=== PATIENT | female | born 1975 | race Caucasian/White ===

== ENCOUNTER 2022-08-14 08:17 | Emergency (ER) | payer MEDICAID ==
[~2022-08-14] VITALS: Ht 162.6 cm; Wt 79.0 kg
[2022-08-14 08:19] VITALS: BP 123/80
[2022-08-14 09:21] LABS: URINE HCG NEGATIVE (NEG)
[2022-08-14 09:23] LABS: CLARITY,URINE CLOUDY (Clear); COLOR,URINE YELLOW (Yellow); GLUCOSE, URINE >=1000 mg/dl (Neg); KETONES,URINE TRACE mg/dl (Neg); LEUKOCYTE ESTERASE ,URINE SMALL (Neg); NITRITES, URINE NEGATIVE (Neg); OCCULT BLOOD,URINE MODERATE (Neg); PH,URINE 5.5 (4.8-8.0); PROTEIN,URINE 30 mg/dl (Neg); UROBILINOGEN,URINE 0.2 E.U/dL (0.2-1.0)
[2022-08-14 09:27] LABS: UA COLLECTION TYPE CLN CATCH MIDSTREAM
[2022-08-14 09:29] LABS: BACTERIA,URINE 1+ /HPF (Neg); MUCUS STRANDS NONE SEEN /LPF (Neg); SQUAMOUS EPITHELIAL CELL,UR MODERATE /LPF (FEW); WBC CLUMPS,URINE MANY /HPF (NEGATIVE); WBC,URINE TNTC /HPF (0-4)
[2022-08-14] MEDS ORDERED: NITR100C6 PO (09:58)
[2022-08-14] MEDS ORDERED: nitrofuran monohydrate/nitrofuran macrocrysal 100 MG (MacroBID) capsule PO ONE (10:00)
== END 2022-08-14 10:10 | disposition home or self-care (01) ==
LOC: ER 08:17
DX: N39.0 Urinary tract infection, site not specified (principal); Z79.899 Other long term (current) drug therapy
CPT/HCPCS: 81001; 81025; 87077; 87088; 87186; 99283

== ENCOUNTER 2022-08-22 08:24 | Day surgery (SDC) | payer MEDICAID ==
[2022-08-18 11:06] LABS: CLARITY,URINE CLEAR (Clear); COLOR,URINE YELLOW (Yellow); GLUCOSE, URINE >=1000 mg/dl (Neg); KETONES,URINE NEGATIVE (Neg); LEUKOCYTE ESTERASE ,URINE NEGATIVE (Neg); NITRITES, URINE NEGATIVE (Neg); OCCULT BLOOD,URINE NEGATIVE (Neg); PH,URINE 5.5 (4.8-8.0); PROTEIN,URINE NEGATIVE (Neg); UROBILINOGEN,URINE 0.2 E.U/dL (0.2-1.0)
[2022-08-18 11:08] LABS: BASOPHILS % (AUTO) 0.5 % (0-1); EOSINOPHILS # (AUTO) 0.4 X10'3 (0-0.9); EOSINOPHILS % (AUTO) 4.2 % (0-6); LYMPHOCYTES # (AUTO) 2.1 X10'3 (1.1-4.8); LYMPHOCYTES % (AUTO) 23.6 % (21-51); MEAN CORPUSCULAR HGB CONC 33.8 g/dL (33.0-36.5); MEAN CORPUSCULAR VOLUME 91.8 FL (78-98); MEAN PLATELET VOLUME 8.5 FL (7.4-10.4); MONOCYTES # (AUTO) 0.4 X10'3 (0-0.9); MONOCYTES % (AUTO) 4.7 % (2-12); PRE OP HEMATOCRIT 43.8 % (35.0-45.0); PRE OP HEMOGLOBIN 14.8 g/dL (12.0-16.0); PRE OP PLATELET COUNT 217 X10'3 (140-440); RED BLOOD COUNT 4.77 X10'6 (4.20-5.60); RED CELL DISTRIBUTION WIDTH 14.3 % (11.5-14.5)
[2022-08-18 11:11] LABS: UA COLLECTION TYPE CLN CATCH MIDSTREAM
[2022-08-18 11:13] LABS: BACTERIA,URINE FEW /HPF (Neg); MUCUS STRANDS NONE SEEN /LPF (Neg); RBC,URINE NONE SEEN /HPF (0-2); SQUAMOUS EPITHELIAL CELL,UR MANY /LPF (FEW); WBC,URINE 0-4 /HPF (0-4)
[2022-08-18 11:20] LABS: ALBUMIN 3.9 G/DL (3.4-5.0); ALBUMIN/GLOBULIN RATIO 1.1 (1.1-1.5); ALKALINE PHOSPHATASE 72 IU/L (46-116); BLOOD UREA NITROGEN 7 MG/DL (7-18); BUN/CREATININE RATIO 8.8 (6.6-38.0); CALCIUM 8.8 MG/DL (8.5-10.1); CHLORIDE 104 MMOL/L (99-107); PRE OP ALT 38 U/L (30-65); PRE OP ANION GAP 8 (8-16); PRE OP AST 25 U/L (10-37); PRE OP BILIRUB, TOTAL 0.7 MG/DL (0.0-1.0); PRE OP GLUCOSE 123 MG/DL (70-104); PRE OP SODIUM 141 MMOL/L (135-145); TOTAL PROTEIN 7.6 G/DL (6.4-8.2); eGFR 77 ML/MIN
[2022-08-18 11:35] LABS: PRE OP POTASSIUM 3.3 MMOL/L (3.4-5.1)
[2022-08-18 11:46] LABS: HCG SERUM QL NEGATIVE
[~2022-08-22] VITALS: Ht 162.6 cm; Wt 75.7 kg
[~2022-08-22 08:24] MED LIST: BUPR300T86 PO; CLON-368 PO; EMPA10TA PO; ceFOXitin 2GM-NS 100mL ADDvant 100 ML IV ONE; famotidine 20mg tablet PO ONE; ringers solution, lacted 1,000 ML IV SCH
[2022-08-22 08:30] VITALS: BP 133/68
[2022-08-22] MEDS ORDERED: ringers solution, lacted 1,000 ML IV SCH (09:20)
[2022-08-22] MEDS ORDERED: proCHLORperazine 10 MG/2 ml inj IV PRN (09:20)
[2022-08-22] MEDS ORDERED: acetaminophen 1,000mg/100ml IV 100 ML IV PRN (09:20)
[2022-08-22] MEDS ORDERED: ondansetron/PF 4mg/2ml inj IV PRN (09:20)
[2022-08-22] MEDS ORDERED: hydrALAZINE 20mg/ml inj. IV PRN (09:20)
[2022-08-22] MEDS ORDERED: morphine 2 MG/ML inj. syringe IV PRN (09:20)
[2022-08-22] MEDS ORDERED: labetalol 20mg/4ml (5mg/ml) syringe IV PRN (09:20)
[2022-08-22] MEDS ORDERED: meperidine/PF 25mg/ml syringe IV PRN ×3 (09:20)
[2022-08-22] MEDS ORDERED: sevoflurane 250ml liquid IH ONE (09:30)
[2022-08-22] MEDS ORDERED: midazolam 1 mg/ML 2ml injection ONE (09:41)
[2022-08-22] MEDS ORDERED: LIDOcaine 2% (20mg/ml) 5ml vial ONE (09:58)
[2022-08-22] MEDS ORDERED: fentaNYL/PF 50MCG/1 ML 2ML syringe ONE (09:58)
[2022-08-22] MEDS ORDERED: ondansetron/PF 4mg/2ml inj ONE (09:58)
[2022-08-22] MEDS ORDERED: propofol inj 20 ML IV ONE (09:58)
[2022-08-22] MEDS ORDERED: dexamethasone sod phosphate 4mg/ml inj. ONE (09:58)
[2022-08-22 10:18] VITALS: BP 134/73
--- NOTE | 2022-08-22 10:18 | NUR ---
Received from OR via , accompanied by Anesthesiologist ALEX AND OR NURSE and report given by Anesthesiolgist. PT IS SLEEPY BUT C/O PAIN AND DISCOMFORT; PAIN MEDS GIVEN ONCE PT SETTLED. 20G TO LT HAND; PACU LR INFUSING. DR SHEN REPORTS PT ABLE TO D/C SOON AWAKE AND PAIN WELL CONTROLLED. VSS Addendum: 08/22/22 at 1038 by Rekha Rebolledo RN Amended: Links added.
[2022-08-22] MEDS: morphine 4 MG/ML inj SYRINge IV PRN ×2 (10:24→10:42)
[2022-08-22 10:30] VITALS: BP 134/75
[2022-08-22 10:40] VITALS: BP 118/71
[2022-08-22 10:50] VITALS: BP 113/66
[2022-08-22 11:00] VITALS: BP 115/75
--- NOTE | 2022-08-22 11:18 | NUR ---
ALL DISCHARGE CRITERIA HAS BEEN MET. VSS, PAIN AT A TOLERABLE LEVEL, VOIDING AND ABLE TO SAFELY AMBULATE AND TRANSFER SELF. IV TAKEN OUT WITHOUT ANY COMPLICATIONS. ALL DISCHARGE INSTRUCTIONS COVERED WITH PATIENT AND ALL QUESTIONS ANSWERED. PATIENT TAKEN OUT VIA WHEELCHAIR TO PERSONAL VEHICLE WHERE FAMILY/FRIEND DROVE PATIENT HOME. Addendum: 08/22/22 at 1133 by Rekha Rebolledo RN Amended: Links added.
== END 2022-08-22 11:18 | disposition home or self-care (01) ==
LOC: PAS 08:24
PROVIDERS: ATTEND Obstetrics & Gynecology Obstetrics
DX: N94.6 Dysmenorrhea, unspecified (principal); N92.0 Excessive and frequent menstruation with regular cycle; N84.0 Polyp of corpus uteri; D25.0 Submucous leiomyoma of uterus; F41.9 Anxiety disorder, unspecified; F32.9 Major depressive disorder, single episode, unspecified; E11.9 Type 2 diabetes mellitus without complications; G43.909 Migraine, unspecified, not intractable, without status migrainosus; E66.9 Obesity, unspecified; Z68.29 Body mass index [BMI] 29.0-29.9, adult; Z79.899 Other long term (current) drug therapy; Z98.890 Other specified postprocedural states; Z88.5 Allergy status to narcotic agent; Z98.1 Arthrodesis status; Z87.891 Personal history of nicotine dependence; Z83.3 Family history of diabetes mellitus; Z81.8 Family history of other mental and behavioral disorders
CPT/HCPCS: 36415; 58558; 71046; 80053; 81001; 82948; 84703; 85025; 86885; 86900; 86901; 93005; J0131; J0694; J1100; J2250; J2270; J2405; J2704; J3010; J3490; J7030; J7120; Z7506; Z7512; A4355; A4618; A6258

== ENCOUNTER 2022-08-29 09:18 | Emergency (ER) | payer MEDICAID ==
[~2022-08-29] VITALS: Ht 162.6 cm; Wt 77.3 kg
[~2022-08-29 09:18] MED LIST changes: -ceFOXitin 2GM-NS 100mL ADDvant 100 ML IV ONE; -famotidine 20mg tablet PO ONE; -ringers solution, lacted 1,000 ML IV SCH
[2022-08-29] MEDS ORDERED: normal saline 1000ML IV soln IVB ONE (09:25)
[2022-08-29] MEDS ORDERED: acetaminophen 1,000mg/100ml IV 100 ML IV STA (09:25)
[2022-08-29] MEDS ORDERED: ondansetron/PF 4mg/2ml inj IV ONE (09:25)
[2022-08-29 09:54] LABS: BASOPHILS # (AUTO) 0.1 X10'3 (0-0.2); BASOPHILS % (AUTO) 0.3 % (0-1); EOSINOPHILS # (AUTO) 0.1 X10'3 (0-0.9); EOSINOPHILS % (AUTO) 0.4 % (0-6); HEMATOCRIT 45.5 % (35.0-45.0); HEMOGLOBIN 15.3 g/dl (12.0-16.0); LYMPHOCYTES # (AUTO) 0.6 X10'3 (1.1-4.8); LYMPHOCYTES % (AUTO) 4.1 % (21-51); MEAN CORPUSCULAR HEMOGLOBIN 30.6 PG (27.0-31.0); MEAN CORPUSCULAR HGB CONC 33.7 g/dL (33.0-36.5); MEAN CORPUSCULAR VOLUME 90.9 FL (78-98); MEAN PLATELET VOLUME 7.9 FL (7.4-10.4); MONOCYTES # (AUTO) 0.3 X10'3 (0-0.9); NEUTROPHILS # (AUTO) 14.2 X10'3 (1.8-7.7); NEUTROPHILS % (AUTO) 93.2 % (42-75); PLATELET COUNT 216 X10'3 (140-440); RED CELL DISTRIBUTION WIDTH 13.8 % (11.5-14.5); WHITE BLOOD COUNT 15.2 X10'3 (4.5-11.0)
[2022-08-29 10:09] LABS: ALANINE AMINOTRANSFERASE 38 U/L (12-78); ALBUMIN 3.9 G/DL (3.4-5.0); ALKALINE PHOSPHATASE 72 IU/L (46-116); ANION GAP 7 (8-16); ASPARTATE AMINO TRANSFERASE 23 U/L (10-37); BLOOD UREA NITROGEN 7 MG/DL (7-18); BUN/CREATININE RATIO 7.4 (6.6-38.0); CALCIUM 9.3 MG/DL (8.5-10.1); CHLORIDE 100 MMOL/L (99-107); CREATININE 0.95 MG/DL (0.40-0.90); GLUCOSE 137 MG/DL (70-104); POTASSIUM 3.9 MMOL/L (3.5-5.1); SODIUM 135 MMOL/L (135-145); TOTAL CARBON DIOXIDE 28.3 MMOL/L (24-32); TOTAL PROTEIN 7.8 G/DL (6.4-8.2); eGFR 63 ML/MIN
[2022-08-29] MEDS ORDERED: iohexol 300mg/ml 100ml inj. ONE (10:19)
[2022-08-29] MEDS ORDERED: CefTRIAXone 2gm/D5W 50ml BAG 50 ML IV ONE (10:30)
[2022-08-29] MEDS ORDERED: normal saline 1000ML IV soln IV ONE (10:50)
[2022-08-29 12:07] LABS: CLARITY,URINE CLOUDY (Clear); COLOR,URINE YELLOW (Yellow); GLUCOSE, URINE >=1000 mg/dl (Neg); KETONES,URINE NEGATIVE (Neg); LEUKOCYTE ESTERASE ,URINE NEGATIVE (Neg); NITRITES, URINE NEGATIVE (Neg); OCCULT BLOOD,URINE SMALL (Neg); PH,URINE 7.5 (4.8-8.0); PROTEIN,URINE NEGATIVE (Neg); UROBILINOGEN,URINE 0.2 E.U/dL (0.2-1.0)
[2022-08-29 12:16] LABS: UA COLLECTION TYPE CLN CATCH MIDSTREAM
[2022-08-29 12:17] LABS: SQUAMOUS EPITHELIAL CELL,UR MANY /LPF (FEW)
[2022-08-29 12:18] LABS: BACTERIA,URINE FEW /HPF (Neg); RBC,URINE 0-2 /HPF (0-2); WBC,URINE 0-4 /HPF (0-4)
[2022-08-29] MEDS ORDERED: ONDA4TAB12 PO (13:54)
[2022-08-29] MEDS ORDERED: CEPH250T PO (13:54)
[2022-08-29 14:04] VITALS: BP 101/55
== END 2022-08-29 14:05 | disposition home or self-care (01) ==
LOC: ER 09:19
DX: E86.0 Dehydration (principal); N93.8 Other specified abnormal uterine and vaginal bleeding; E87.20 Acidosis, unspecified; Z79.2 Long term (current) use of antibiotics; Z79.899 Other long term (current) drug therapy
CPT/HCPCS: 36415; 74177; 80053; 81001; 83605; 84145; 85025; 85610; 86885; 86900; 86901; 87040; 96361; 96365; 96366; 96375; 99285; J0131; J0696; J2405; J3490; J7030; Q9967

== ENCOUNTER 2024-01-03 16:05 | Emergency (ER) | payer BC, MEDICAID ==
[~2024-01-03] VITALS: Ht 162.6 cm; Wt 81.8 kg
[~2024-01-03 16:05] MED LIST changes: +BUPR-564 PO; -BUPR300T86 PO; +ONDA4TAB12 PO
[2024-01-03 18:08] LABS: BILIRUBIN,URINE NEGATIVE (Neg); CLARITY,URINE SLIGHTLY CLOUDY (Clear); COLOR,URINE YELLOW (Yellow); GLUCOSE, URINE NEGATIVE (Neg); KETONES,URINE NEGATIVE (Neg); LEUKOCYTE ESTERASE ,URINE NEGATIVE (Neg); NITRITES, URINE NEGATIVE (Neg); OCCULT BLOOD,URINE NEGATIVE (Neg); PH,URINE 5.5 (4.8-8.0); PROTEIN,URINE NEGATIVE (Neg); UROBILINOGEN,URINE 0.2 E.U/dL (0.2-1.0)
[2024-01-03 18:10] LABS: UA COLLECTION TYPE CLN CATCH MIDSTREAM
[2024-01-03 18:12] LABS: URINE HCG NEGATIVE (NEG)
[2024-01-03 18:14] LABS: BACTERIA,URINE 2+ /HPF (Neg); RBC,URINE 0-2 /HPF (0-2); SQUAMOUS EPITHELIAL CELL,UR MANY /LPF (FEW); WBC,URINE 0-4 /HPF (0-4)
[2024-01-03] MEDS: HYDROcodone/acetaminophen 5mg/325mg tablet PO ONE (18:15)
[2024-01-03] MEDS: ketorolac trometh inj. 60 MG/2 ML VIAL IM ONE (18:35)
[2024-01-03] MEDS: ketorolac trometh. 30mg/ml inj. IM ONE (18:35)
[2024-01-03] MEDS ORDERED: METH-798 PO (19:16)
[2024-01-03] MEDS ORDERED: HYDR-3965 PO (19:16)
[2024-01-03] MEDS ORDERED: PRED20TA PO (19:16)
[2024-01-03 19:37] VITALS: BP 128/87; PULSE 67; RESP 16; TEMP 98; O2SAT 98
== END 2024-01-03 19:41 | disposition home or self-care (01) ==
LOC: ER 16:06
DX: M54.50 Low back pain, unspecified (principal); Z79.899 Other long term (current) drug therapy; Z79.2 Long term (current) use of antibiotics
CPT/HCPCS: 72100; 81001; 81025; 96372; 99284; J1885